=== PATIENT | male | born 1940 | race Caucasian/White ===

== ENCOUNTER 2021-05-08 09:03 | Outpatient (RCR) | payer MEDICARE, OTHER, SELFPAY | END 2021-06-07 10:00 | disposition home or self-care (01) | LOC: HO.WCC 09:03 | PROVIDERS: PCP Internal Medicine; Visit Provider Physician Assistant | DX: I87.331 Chronic venous hypertension (idiopathic) with ulcer and inflammation of right lower extremity (principal); L97.812 Non-pressure chronic ulcer of other part of right lower leg with fat layer exposed; S61.411D Laceration without foreign body of right hand, subsequent encounter; L03.115 Cellulitis of right lower limb; I73.9 Peripheral vascular disease, unspecified; E05.90 Thyrotoxicosis, unspecified without thyrotoxic crisis or storm; I48.91 Unspecified atrial fibrillation; I50.9 Heart failure, unspecified; N18.30 Chronic kidney disease, stage 3 unspecified; B96.20 Unspecified Escherichia coli [E. coli] as the cause of diseases classified elsewhere; I27.20 Pulmonary hypertension, unspecified; Z79.52 Long term (current) use of systemic steroids; Z79.2 Long term (current) use of antibiotics; Z86.718 Personal history of other venous thrombosis and embolism | CPT/HCPCS: 10060; 10061; 11042; 11043; 11046; 87071; 87077; 87186; 87205; 97605; 99203 ==